=== PATIENT | female | born 1955 ===

== ENCOUNTER 2018-03-13 21:24 | Emergency (ER) | payer MEDICARE, OTHER ==
[2018-03-13 22:06] VITALS: O2SAT 97
--- NOTE | 2018-03-13 22:25 | C.PDOC ---
History Of Present Illness Patient gave a hisory of losing her balance and fell. Denies any dizziness, headache or palpitation. - HPI Time Seen by Provider: 03/13/18 22:23 Chief Complaint (Nursing): Trauma History Per: Patient, Family History/Exam Limitations: no limitations Onset/Duration Of Symptoms: Hrs Location Of Injury: Right: Head (ecchymosis of Right lateral brow with tenderness.) Severity: Mild Pain Scale Rating Of: 2 Associated Symptoms: Other (none) Recent travel outside of the [place]: No Additional History Per: Family - Fall Fall:Prior To Injury: Lost Balance Past Medical History Vital Signs: Last Vital Signs Temp 98.8 F 03/13/18 22:00 Pulse 66 03/13/18 22:00 Resp 18 03/13/18 22:00 BP 144/86 03/13/18 22:00 Pulse Ox 97 03/13/18 23:07 - Medical History PMH: Depression, HTN Surgical History: Cholecystectomy Family History: States: Unknown Family Hx - Social History Hx Alcohol Use: No Hx Substance Use: No - Immunization History Hx Tetanus Toxoid Vaccination: No Hx Influenza Vaccination: Yes Hx Pneumococcal Vaccination: No Review Of Systems Cardiovascular: Negative for: Chest Pain, Palpitations Gastrointestinal: Negative for: Nausea, Vomiting Musculoskeletal: Negative for: Neck Pain, Shoulder Pain, Arm Pain, Back Pain, Hand Pain, Leg Pain Neurological: Positive for: Headache. Negative for: Weakness, Numbness, Incoordination, Change in Speech, Confusion, Seizures, Altered Mental Status Psych: Negative for: Anxiety, Depression, Withdrawal Physical Exam - Physical Exam Appears: Well, Non-toxic, No Acute Distress Skin: Normal Color, Warm, Dry Head: Other (ecchymosis and tenderness of right eye brow/ frontal area.) Eye(s): bilateral: Normal Inspection, PERRL, EOMI Nose: Normal Throat: Normal Neck: Normal, Normal ROM Chest: Symmetrical, No Deformity, No Tenderness Cardiovascular: Rhythm Regular Respiratory: Normal Breath Sounds Gastrointestinal/Abdominal: Normal Exam Extremity: Normal ROM ED Course And Treatment - Laboratory Results Result Diagrams: 03/13/18 22:41 03/13/18 22:41 ECG: Interpreted By Me, Viewed By Me ECG Rhythm: Sinus Bradycardia, Nonspecific Changes ECG Interpretation: No Acute Changes Interpretation Of ECG: Sinus bradycardia, non-spc St-T changes, abnormal tracings Rate From EC O2 Sat by Pulse Oximetry: 97 Pulse Ox Interpretation: Normal Disposition Counseled Patient/Family Regarding: Diagnosis - Disposition Referrals: [facility] [Outside] Disposition Time: 23:47 Condition: STABLE Prescriptions: Ibuprofen [Ibu] 400 mg PO Q6 #14 tablet Instructions: Minor Head Injury Forms: [facility] ([employer]), Gen Discharge Inst Romanian Print Language: PERSIAN - POA Present On Arrival: None - Clinical Impression Clinical Impression: Head injury without concussion or intracranial hemorrhage
[2018-03-13 22:44] LABS: BASO % 0.7 % (0.0-2.0); EOS # 0.1 K/uL (0.0-0.7); EOS % 2.4 % (0.0-4.0); HEMOGLOBIN 13.8 g/dL (11.0-16.0); LYMPH # 2.3 K/uL (1.0-4.3); LYMPH % 46.2 % (20.0-40.0); MEAN CELL VOLUME 84.7 fL (81.0-99.0); MEAN CORPUSCULAR HGB CONC 33.1 g/dL (33.0-37.0); MEAN PLATELET VOLUME 8.9 fL (7.2-11.7); MONO # 0.4 K/uL (0.0-0.8); MONO % 7.9 % (0.0-10.0); NEUT # 2.1 K/uL (1.8-7.0); NEUT % 42.8 % (50.0-75.0); NRBC % 0.1 % (0.0-2.0); RBC 4.92 Mil/uL (3.80-5.20); RED CELL DISTRIBUTION WIDTH 12.4 % (11.5-14.5)
[2018-03-13 22:56] LABS: ALB/GLOB RATIO 1.5 (1.0-2.1); ALBUMIN 4.4 g/dL (3.5-5.0); ALT/SGPT 26 U/L (9-52); AST/SGOT 19 U/L (14-36); BLOOD UREA NITROGEN 18 mg/dL (7-17); CALCIUM 9.9 mg/dl (8.6-10.4); GFR AFRICAN-AMERICAN > 60; GFR NON-AFRICAN AMERICAN > 60
[2018-03-13 23:59] VITALS: BP 151/90; PULSE 61; RESP 16; TEMP 98.2
--- NOTE | 2018-03-14 08:59 | CT ---
PROCEDURE: CT HEAD WITHOUT CONTRAST. HISTORY: Headache COMPARISON: None available. TECHNIQUE: Axial computed tomography images were obtained through the head/brain without intravenous contrast. Radiation dose: Total exam DLP = 751.97 mGy-cm. This CT exam was performed using one or more of the following dose reduction techniques: Automated exposure control, adjustment of the mA and/or kV according to patient size, and/or use of iterative reconstruction technique. . FINDINGS: HEMORRHAGE: No acute parenchymal, subarachnoid nor extra-axial hemorrhage. BRAIN: . Mild chronic periventricular white matter ischemic changes with scattered more discrete deep and subcortical white matter as well as bilateral basal nuclei ischemic changes as well. Note that the possibility of a small hyperacute infarct cannot be excluded on this study and if there is any concern, recommend followup MRI with diffusion imaging. The ventricular and sulcal size are within range of normal for this patient's stated age. There are no obvious parenchymal nor extra-axial masses or collections identified on this noncontrast study. Minor vascular calcifications both carotid siphons. VENTRICLES: No obstructive hydrocephalus. CALVARIUM: Unremarkable. PARANASAL SINUSES: Unremarkable as visualized. No significant inflammatory changes. MASTOID AIR CELLS: Unremarkable as visualized. No inflammatory changes. OTHER FINDINGS: Orbits and contents unremarkable IMPRESSION: No acute intracranial hemorrhage. Chronic appearing white matter and basal nuclei ischemic changes. Note that the possibility of a small hyperacute infarct not excluded. Clinic correlation recommended to determine whether additional imaging and urgency of such imaging is required.
--- NOTE | 2018-03-16 15:27 | CARD ---
APPROVED REPORT EKG Measurement Heart [id number] <Conclusion> Sinus bradycardia Nonspecific ST abnormality Abnormal ECG
== END 2018-03-13 23:59 | disposition home or self-care (01) ==
LOC: C.ER 21:24
DX: S00.83XA Contusion of other part of head, initial encounter (principal); W18.30XA Fall on same level, unspecified, initial encounter